=== PATIENT | male | born 2000 | race Caucasian/White ===

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

== ENCOUNTER 2022-10-16 01:09 | Emergency (ER) | payer OTHER ==
[~2022-10-16] VITALS: Ht 177.8 cm; Wt 81.0 kg
[2022-10-16] MEDS ORDERED: LIDOCAINE 1%/EPI 1:200,000/PF 30 ML VIAL SQ ONE (01:45)
[2022-10-16] MEDS ORDERED: BACITRACIN 0.9 GM PACKET OINTMENT TP ONE (01:45)
[2022-10-16] MEDS ORDERED: ACETAMINOPHEN 500 MG TABLET PO ONE (01:45)
[2022-10-16] MEDS ORDERED: PERTUSS(ACELL),DIPH,TET VAC/PF 0.5 ML SYRINGE IM. ONE (01:45)
[2022-10-16] MEDS ORDERED: DOXY-354 PO (03:30)
[2022-10-16 03:45] VITALS: BP 124/80
== END 2022-10-16 04:11 | disposition home or self-care (01) ==
LOC: EMS 01:11
DX: S51.011A Laceration without foreign body of right elbow, initial encounter (principal); Y04.2XXA Assault by strike against or bumped into by another person, initial encounter; Y93.89 Activity, other specified; Y92.89 Other specified places as the place of occurrence of the external cause; Y99.8 Other external cause status
CPT/HCPCS: 99283; 73080; 90715; 90471; 12004; J3490; 12015

== ENCOUNTER 2022-10-22 12:30 | Emergency (ER) | payer OTHER ==
[~2022-10-22] VITALS: Ht 180.3 cm; Wt 81.0 kg
[~2022-10-22 12:30] MED LIST changes: +DOXY-354 PO; -IBUP-2071 PO
[2022-10-22 12:34] VITALS: BP 131/68
== END 2022-10-22 13:14 | disposition home or self-care (01) ==
LOC: EMS 12:38
DX: S51.011D Laceration without foreign body of right elbow, subsequent encounter (principal); X58.XXXD Exposure to other specified factors, subsequent encounter
CPT/HCPCS: 99281; Z7502